=== PATIENT | male | born 1975 | race African-American/Black ===

== ENCOUNTER 2017-12-22 21:48 | Emergency (ER) | payer MEDICAID ==
[~2017-12-22] VITALS: Ht 180.3 cm; Wt 87.1 kg
[2017-12-22 21:59] VITALS: BP 125/90
[2017-12-22 22:20] LABS: Basophils # (auto) 0.1 uL; Basophils % (auto) 1.2 % (0.0-2.0); Eosinophils # (auto) 0.1 uL; Hematocrit 46.2 % (41.0-53.0); Hemoglobin 15.3 g/dL (13.5-17.5); Lymphocytes # (auto) 3.2 uL; Lymphocytes % (auto) 45.4 % (10.0-50.0); Mean Corpuscular Hemoglobin 28.3 pg (28.0-32.0); Mean Corpuscular Hgb Conc. 33.2 g/dL (32.0-36.0); Mean Corpuscular Volume 85.4 fL (80.0-100.0); Monocytes # (auto) 0.4 uL; Monocytes % (auto) 6.2 % (0.0-12.0); Neutrophils # (auto) 3.2 uL; Neutrophils % (auto) 46.2 % (37.0-80.0); Nucleated Red Blood Cells % 0.2 %; Platelet Count (auto) 387 10^3/uL (140-450); Red Blood Cells 5.41 10^6/uL (4.5-5.90)
[2017-12-22 22:31] LABS: Albumin 3.9 g/dL (3.4-5.0); BUN/Creatinine Ratio 21.2; Bilirubin, Total 0.5 mg/dL (0.2-1.0); Potassium 4.1 mmol/L (3.5-5.1)
== END 2017-12-23 03:34 | disposition left against medical advice (07) ==
LOC: ER 21:48
DX: R20.0 Anesthesia of skin (principal); Z53.21 Procedure and treatment not carried out due to patient leaving prior to being seen by health care provider
CPT/HCPCS: 36415; 70450; 72125; 80053; 85025

== ENCOUNTER 2017-12-25 17:29 | Emergency (ER) | payer MEDICAID ==
[~2017-12-25] VITALS: Ht 180.3 cm; Wt 88.5 kg
[2017-12-25 23:25] VITALS: BP 155/40
== END 2017-12-26 00:41 | disposition home or self-care (01) ==
LOC: ER 17:38
DX: G51.0 Bell's palsy (principal)
CPT/HCPCS: 70450

== ENCOUNTER 2018-02-16 11:37 | Emergency (ER) | payer MEDICAID ==
[~2018-02-16] VITALS: Ht 180.3 cm; Wt 83.9 kg
[2018-02-16 11:43] VITALS: BP 130/79
[2018-02-16] MEDS ORDERED: KETOROLAC TROMETH 60MG/2ML VIAL IM ONE (14:30)
[2018-02-16] MEDS ORDERED: DEXAMETHASONE SOD PHOS 10MG/1ML VIAL INJ IM ONE (14:30)
== END 2018-02-16 15:18 | disposition home or self-care (01) ==
LOC: ER 11:37
DX: S46.912A Strain of unspecified muscle, fascia and tendon at shoulder and upper arm level, left arm, initial encounter (principal); M54.6 Pain in thoracic spine; M79.18 Myalgia, other site; X50.1XXA Overexertion from prolonged static or awkward postures, initial encounter; Y93.89 Activity, other specified; Y92.89 Other specified places as the place of occurrence of the external cause; Y99.8 Other external cause status
CPT/HCPCS: 71046; 72040; 72070; 73030; 93005; 96372; 99284; J1100; J1885

== ENCOUNTER 2018-03-06 02:42 | Emergency (ER) | payer MEDICAID ==
[~2018-03-06] VITALS: Ht 180.3 cm; Wt 84.8 kg
[2018-03-06 02:54] VITALS: BP 154/84
[2018-03-06] MEDS ORDERED: KETOROLAC TROMETH 60MG/2ML VIAL IM ONE (03:45)
[2018-03-06] MEDS ORDERED: methylPREDNISolone SOD SUCC 125 MG/2 ML VL IM ONE (03:45)
== END 2018-03-06 05:04 | disposition home or self-care (01) ==
LOC: ER 02:44
DX: G58.8 Other specified mononeuropathies (principal); M62.838 Other muscle spasm
CPT/HCPCS: 72125; 96372; 99284; J1885; J2930

== ENCOUNTER 2018-11-03 07:59 | Emergency (ER) | payer MEDICAID ==
[~2018-11-03] VITALS: Ht 180.3 cm; Wt 90.7 kg
[2018-11-03 08:06] VITALS: BP 149/77
[2018-11-03] MEDS ORDERED: IPRATROPIUM BROM 0.5 MG/2.5ML INH SOL NEB ONE (09:00)
[2018-11-03] MEDS ORDERED: ALBUTEROL SULF 2.5 MG/0.5ML(0.5%) NEB SOLN NEB ONE (09:00)
== END 2018-11-03 09:38 | disposition home or self-care (01) ==
LOC: ER 07:59
DX: J98.01 Acute bronchospasm (principal); F41.9 Anxiety disorder, unspecified
CPT/HCPCS: 71046; 94640; 99283; J7611; J7644

== ENCOUNTER 2019-10-21 18:16 | Emergency (ER) | payer MEDICAID ==
[~2019-10-21] VITALS: Ht 180.3 cm; Wt 85.7 kg
[2019-10-21 18:17] VITALS: BP 150/87
[2019-10-21] MEDS ORDERED: ALBUTEROL SULF 2.5 MG/0.5ML(0.5%) NEB SOLN NEB ONE (19:30)
[2019-10-21] MEDS ORDERED: IPRATROPIUM BROM 0.5 MG/2.5ML INH SOL NEB ONE (19:30)
[2019-10-21] MEDS ORDERED: methylPREDNISolone SOD SUCC 125 MG/2 ML VL IM ONE (19:30)
== END 2019-10-21 20:31 | disposition home or self-care (01) ==
LOC: ER 18:16
DX: J98.01 Acute bronchospasm (principal)
CPT/HCPCS: 71046; 94640; 96372; 99283; J2930; J7644

== ENCOUNTER 2019-10-22 14:57 | Emergency (ER) | payer MEDICAID ==
[~2019-10-22] VITALS: Ht 180.3 cm; Wt 88.9 kg
[2019-10-22 16:36] VITALS: BP 130/87
[2019-10-22 16:45] LABS: Basophils # (auto) 0 10 ^3/uL (0-0.2); Basophils % (auto) 0.2 % (0.0-2.0); Eosinophils # (auto) 0 10 ^3/uL (0-0.8); Hematocrit 51.1 % (41.0-53.0); Hemoglobin 16.5 g/dL (13.5-17.5); Lymphocytes % (auto) 7.5 % (10.0-50.0); Mean Corpuscular Hgb Conc. 32.4 g/dL (32.0-36.0); Mean Corpuscular Volume 83.5 fL (80.0-100.0); Monocytes # (auto) 0.2 10 ^3/uL (0-1.3); Monocytes % (auto) 1.5 % (0.0-12.0); Neutrophils # (auto) 11.7 10 ^3/uL (1.6-8.6); Neutrophils % (auto) 90.8 % (37.0-80.0); Nucleated Red Blood Cells % 0.1 %; Platelet Count (auto) 374 10^3/uL (140-450); Red Blood Cells 6.12 10^6/uL (4.5-5.90); Red Cell Distribution Width 15.1 % (11.8-14.3); White Blood Cell 12.9 10^3/uL (4.4-10.8)
[2019-10-22 16:57] LABS: Anion Gap 6 (5-15); Calcium 9.6 mg/dL (8.5-10.1); Carbon Dioxide 25 mmol/L (21-32); Chloride 106 mmol/L (98-107); GFR African American 106 mL/min; GFR Non-African American 88 mL/min; Glucose 123 mg/dL (74-106); Potassium 3.9 mmol/L (3.5-5.1); Sodium 137 mmol/L (136-145)
[2019-10-22 17:01] LABS: BUN/Creatinine Ratio 19.4; Blood Urea Nitrogen 19 mg/dL (7-18)
[2019-10-22 17:10] LABS: Alcohol, Urine < 3.0 mg/dL (0-10); Amphetamine Screen, Urine NEGATIVE (NEGATIVE); Barbiturate Scree,Urine NEGATIVE (NEGATIVE); Benzodiazephine Screen, Urine NEGATIVE (NEGATIVE); Cannabinoid Screen, Urine POSITIVE (NEGATIVE); Cocaine Screen, Urine NEGATIVE (NEGATIVE); Opiate Scree,Urine NEGATIVE (NEGATIVE)
[2019-10-22 17:17] LABS: Phencyclidine Screen, Urine NEGATIVE (NEGATIVE)
[2019-10-22] MEDS ORDERED: cefTRIAXone SOD 1,000 MG VL IM ONE (17:30)
== END 2019-10-22 18:07 | disposition home or self-care (01) ==
LOC: ER 14:57
DX: J03.90 Acute tonsillitis, unspecified (principal); F41.1 Generalized anxiety disorder; K21.9 Gastro-esophageal reflux disease without esophagitis
CPT/HCPCS: 36415; 80048; 80307; 84484; 85025; 96372; 99283; J0696

== ENCOUNTER 2019-12-06 09:15 | Emergency (ER) | payer MEDICAID ==
[~2019-12-06] VITALS: Ht 180.3 cm; Wt 88.5 kg
[2019-12-06 09:31] VITALS: BP 128/89
[2019-12-06] MEDS ORDERED: cefTRIAXone SOD 1,000 MG VL IM ONE (10:00)
== END 2019-12-06 10:19 | disposition home or self-care (01) ==
LOC: ER 09:15
DX: J02.9 Acute pharyngitis, unspecified (principal); K21.9 Gastro-esophageal reflux disease without esophagitis; F17.210 Nicotine dependence, cigarettes, uncomplicated
CPT/HCPCS: 96372; 99283; J0696

== ENCOUNTER 2021-09-05 06:42 | Emergency (ER) | payer MEDICAID ==
[~2021-09-05] VITALS: Ht 180.3 cm; Wt 78.5 kg
[2021-09-05 06:42] VITALS: BP 124/83
[2021-09-05 08:30] LABS: Urine WBC None Seen /hpf (0 - 3)
[2021-09-05] MEDS ORDERED: SODIUM CHLORIDE 0.9% 1,000 ML IV ONE (08:45)
[2021-09-05] MEDS ORDERED: SODIUM CHLORIDE 0.9% 500 ML IVB ONE (08:45)
[2021-09-05] MEDS ORDERED: PROCHLORPERAZINE EDISYLATE 5 MG/ML 2ML VIAL IV ONE (08:45)
[2021-09-05 09:23] LABS: Amphetamine Screen, Urine NEGATIVE (NEGATIVE); Cannabinoid Screen, Urine POSITIVE (NEGATIVE)
[2021-09-05 09:31] LABS: Barbiturate Scree,Urine NEGATIVE (NEGATIVE); Benzodiazephine Screen, Urine NEGATIVE (NEGATIVE); Cocaine Screen, Urine NEGATIVE (NEGATIVE); Opiate Scree,Urine NEGATIVE (NEGATIVE); Phencyclidine Screen, Urine NEGATIVE (NEGATIVE)
[2021-09-05 09:33] LABS: Urine Bacteria NONE SEEN /hpf (None Seen); Urine Blood 1+ /uL (Negative); Urine Mucus FEW (None Seen); Urine Specific Gravity 1.036 (1.001-1.035)
[2021-09-05 11:00] LABS: Basophils # (auto) 0 10 ^3/uL (0-0.2); Basophils % (auto) 0.4 % (0.0-2.0); Eosinophils # (auto) 0 10 ^3/uL (0-0.8); Hemoglobin 17.5 g/dL (13.5-17.5); Neutrophils # (auto) 4.6 10 ^3/uL (1.6-8.6)
[2021-09-05 11:01] LABS: Eosinophils % (auto) 0.2 % (0.0-7.0); Hematocrit 52.2 % (41.0-53.0); Lymphocytes # (auto) 1.9 10 ^3/uL (0.4-5.4); Lymphocytes % (auto) 27.4 % (10.0-50.0); Mean Corpuscular Hgb Conc. 33.6 g/dL (32.0-36.0); Mean Corpuscular Volume 83.4 fL (80.0-100.0); Monocytes # (auto) 0.3 10 ^3/uL (0-1.3); Monocytes % (auto) 4.9 % (0.0-12.0); Neutrophils % (auto) 67.1 % (37.0-80.0); Nucleated Red Blood Cells % 0.1 %; Red Blood Cells 6.27 10^6/uL (4.5-5.90); Red Cell Distribution Width 14.4 % (11.8-14.3); White Blood Cell 6.8 10^3/uL (4.4-10.8)
[2021-09-05 11:17] LABS: Albumin 4.4 g/dL (3.4-5.0); Calcium 9.4 mg/dL (8.5-10.1); Magnesium 2.6 mg/dL (1.6-2.6); Potassium 4.2 mmol/L (3.5-5.1)
[2021-09-05 11:22] LABS: Bilirubin, Total 0.9 mg/dL (0.2-1.0)
== END 2021-09-05 10:07 | disposition left against medical advice (07) ==
LOC: ER 06:42
DX: R10.13 Epigastric pain (principal); F12.10 Cannabis abuse, uncomplicated; R11.2 Nausea with vomiting, unspecified; K21.9 Gastro-esophageal reflux disease without esophagitis; F17.210 Nicotine dependence, cigarettes, uncomplicated; Z90.49 Acquired absence of other specified parts of digestive tract
CPT/HCPCS: 36415; 74176; 80053; 80307; 81001; 83690; 83735; 85025; 96374; 99284; J0780; J7040

== ENCOUNTER 2023-04-10 08:13 | Emergency (ER) | payer MEDICAID ==
[~2023-04-10] VITALS: Ht 180.3 cm; Wt 86.6 kg
[2023-04-10 12:25] VITALS: BP 141/85; PULSE 58; RESP 18; TEMP 97.6; O2SAT 96
[2023-04-10] MEDS ORDERED: MELO7.5T7 PO (12:32)
[2023-04-10] MEDS ORDERED: LIDO5CRE14 EX (12:32)
== END 2023-04-10 12:37 | disposition home or self-care (01) ==
LOC: ER 08:13
DX: R07.89 Other chest pain (principal); K21.9 Gastro-esophageal reflux disease without esophagitis; F17.210 Nicotine dependence, cigarettes, uncomplicated; F12.10 Cannabis abuse, uncomplicated
CPT/HCPCS: 71045

== ENCOUNTER 2023-08-08 21:13 | Emergency (ER) | payer MEDICAID ==
[~2023-08-08] VITALS: Ht 180.3 cm; Wt 83.4 kg
[2023-08-08 21:13] VITALS: BP 140/80; PULSE 82; RESP 20; O2SAT 97
[~2023-08-08 21:13] MED LIST: LIDO5CRE14 EX; MELO7.5T7 PO
[2023-08-08 21:58] LABS: Basophils # (auto) 0 10 ^3/uL (0-0.2); Eosinophils # (auto) 0.5 10 ^3/uL (0-0.8); Eosinophils % (auto) 10.3 % (0.0-7.0); Hemoglobin 17.1 g/dL (13.5-17.5); Lymphocytes # (auto) 2.1 10 ^3/uL (0.4-5.4); Mean Corpuscular Volume 83.6 fL (80.0-100.0); Monocytes # (auto) 0.3 10 ^3/uL (0-1.3)
[2023-08-08 22:00] LABS: Basophils % (auto) 0.8 % (0.0-2.0); Hematocrit 52.9 % (41.0-53.0); Lymphocytes % (auto) 42.9 % (10.0-50.0); Mean Corpuscular Hgb Conc. 32.3 g/dL (32.0-36.0); Monocytes % (auto) 5.3 % (0.0-12.0); Neutrophils % (auto) 40.7 % (37.0-80.0); Nucleated Red Blood Cells % 0.4 %; Red Blood Cells 6.32 10^6/uL (4.5-5.90); Red Cell Distribution Width 14.9 % (11.8-14.3); White Blood Cell 4.9 10^3/uL (4.4-10.8)
[2023-08-08 23:00] LABS: Urine Bacteria None Seen /hpf (None Seen)
[2023-08-08 23:10] LABS: Alanine Aminotransferase 17 U/L (7-40); Albumin 4.3 g/dL (3.2-4.8); Alkaline Phosphatase 80 U/L (46-116); Anion Gap 6 (5-15); Aspartate Aminotransferase 18 U/L (13-40); BUN/Creatinine Ratio 15.1 (10.0-20.0); Blood Urea Nitrogen 13 mg/dL (9-23); Calcium 9.5 mg/dL (8.7-10.4); Carbon Dioxide 25 mmol/L (20-30); Chloride 104 mmol/L (98-107); Glucose 91 mg/dL (74-106); Lipase 28 U/L (12-53); Potassium 4.1 mmol/L (3.5-5.1); Sodium 135 mmol/L (136-145)
[2023-08-08 23:11] LABS: Bilirubin, Total 1.2 mg/dL (0.2-1.0); Total Protein 6.9 g/dL (5.7-8.2)
[2023-08-08 23:43] LABS: Urine Blood 1+ /uL (Negative); Urine Clarity Clear (Clear); Urine Color Yellow (Yellow); Urine Mucus FEW (None Seen); Urine Protein, UAD Negative (Negative); Urine Specific Gravity 1.026 (1.001-1.035); Urine Urobilinogen Normal (Negative); Urine WBC 1 /hpf (0 - 3); Urine pH 5.5 (5.0-9.0)
[2023-08-09] MEDS ORDERED: ZOFR4T PO (01:15)
[2023-08-09] MEDS ORDERED: ONDANSETRON HCL 4 MG/2 ML VIAL IV ONE (01:15)
[2023-08-09] MEDS ORDERED: FAMO20TA10 PO (01:15)
[2023-08-09] MEDS ORDERED: MORPHINE SULFATE 4 MG/ML SYR/VIAL IV ONE (01:15)
[2023-08-09] MEDS ORDERED: SODIUM CHLORIDE 0.9% 1,000 ML IV ONE (01:15)
[2023-08-09] MEDS ORDERED: HYDR-4902 PO (01:15)
== END 2023-08-09 05:02 | disposition left against medical advice (07) ==
LOC: ER 21:13
DX: K29.70 Gastritis, unspecified, without bleeding (principal); N20.0 Calculus of kidney; K21.9 Gastro-esophageal reflux disease without esophagitis; F17.210 Nicotine dependence, cigarettes, uncomplicated; F12.10 Cannabis abuse, uncomplicated
CPT/HCPCS: 36415; 74176; 80053; 81001; 83690; 85025

== ENCOUNTER 2023-11-17 13:48 | Inpatient (IN) | payer MEDICAID ==
[~2023-11-17] VITALS: Ht 180.3 cm; Wt 80.8 kg
[~2023-11-17 13:48] MED LIST changes: +FAMO20TA10 PO; +HYDR-4902 PO; +ZOFR4T PO
[2023-11-17 14:56] LABS: Basophils # (auto) 0.1 10 ^3/uL (0-0.2); Basophils % (auto) 0.6 % (0.0-2.0); Eosinophils # (auto) 0.1 10 ^3/uL (0-0.8); Eosinophils % (auto) 0.8 % (0.0-7.0); Hematocrit 40.6 % (41.0-53.0); Hemoglobin 13.9 g/dL (13.5-17.5); Lymphocytes # (auto) 3.4 10 ^3/uL (0.4-5.4); Lymphocytes % (auto) 37.3 % (10.0-50.0); Mean Corpuscular Hemoglobin 28.7 pg (28.0-32.0); Mean Corpuscular Hgb Conc. 34.2 g/dL (32.0-36.0); Mean Corpuscular Volume 83.9 fL (80.0-100.0); Monocytes # (auto) 0.4 10 ^3/uL (0-1.3); Monocytes % (auto) 4.9 % (0.0-12.0); Neutrophils # (auto) 5.1 10 ^3/uL (1.6-8.6); Neutrophils % (auto) 56.4 % (37.0-80.0); Nucleated Red Blood Cells % 0.1 %; Red Blood Cells 4.84 10^6/uL (4.5-5.90); Red Cell Distribution Width 14.6 % (11.8-14.3); White Blood Cell 9.1 10^3/uL (4.4-10.8)
[2023-11-17 15:11] LABS: INR 1.07 (0.9-1.15); Partial Thromboplastin Time 24.9 SEC (24.5-34.5); Prothrombin Time 11.3 sec (9.3-11.8)
[2023-11-17 15:13] LABS: Alanine Aminotransferase 17 U/L (7-40); Albumin 4.2 g/dL (3.2-4.8); Alkaline Phosphatase 56 U/L (46-116); Anion Gap 5 (5-15); Aspartate Aminotransferase 17 U/L (13-40); Blood Urea Nitrogen 43 mg/dL (9-23); Calcium 9.3 mg/dL (8.7-10.4); Carbon Dioxide 28 mmol/L (20-30); Chloride 103 mmol/L (98-107); Glucose 98 mg/dL (74-106); Magnesium 2.1 mg/dL (1.6-2.6); Potassium 4.8 mmol/L (3.5-5.1); Sodium 136 mmol/L (136-145)
[2023-11-17 15:14] LABS: Bilirubin, Total 0.5 mg/dL (0.2-1.0)
[2023-11-17 15:30] VITALS: PULSE 102; RESP 16; O2SAT 96
[2023-11-17] MEDS: SODIUM CHLORIDE 0.9% 1,000 ML IV ONE (15:45)
[2023-11-17] MEDS: PANTOPRAZOLE 40 MG/10 ML VIAL INJ IV ONE (16:06)
[2023-11-17] MEDS: PANTOPRAZOLE 80 MG in SODIUM CHL 0.9% 100 ML IV ONE (16:06)
[2023-11-17] MEDS: PANTOPRAZOLE 40mg/50ML NS AE 50 ML IV ONE (16:28)
[2023-11-17] MEDS ORDERED: ONDANSETRON HCL 4 MG/2 ML VIAL IV PRN (17:15)
[2023-11-17 17:19] LABS: Urine Bacteria None Seen /hpf (None Seen)
[2023-11-17] MEDS: SODIUM CHLORIDE 0.9% 1,000 ML IV SCH (17:26)
[2023-11-17 17:39] LABS: Urine Blood Negative /uL (Negative); Urine Clarity Clear (Clear); Urine Color Light-Yellow (Yellow); Urine Mucus FEW (None Seen); Urine Protein, UAD Negative (Negative); Urine Urobilinogen Normal (Negative); Urine WBC 1 /hpf (0 - 3); Urine pH 5.5 (5.0-9.0)
[2023-11-17 19:31] LABS: Hematocrit 37.1 % (41.0-53.0); Hemoglobin 12.3 g/dL (13.5-17.5)
[2023-11-17] MEDS: PANTOPRAZOLE 40 MG/10 ML VIAL INJ IV SCH (22:00)
[2023-11-17 22:08] VITALS: BP 116/69; PULSE 54; PULSE 88; RESP 17; RESP 20; TEMP 98.2; O2SAT 100
[2023-11-17 22:52] VITALS: BP 116/69; PULSE 61; RESP 18; TEMP 97.9; O2SAT 100
[2023-11-18] VITALS (8 sets, daily range): BP systolic 101–120; BP diastolic 56–84; PULSE 59–78; RESP 14–22; TEMP 97.8–98.2; O2SAT 97–99
[2023-11-18 06:52] LABS: Basophils # (auto) 0 10 ^3/uL (0-0.2); Basophils % (auto) 0.7 % (0.0-2.0); Eosinophils # (auto) 0.1 10 ^3/uL (0-0.8); Eosinophils % (auto) 2.1 % (0.0-7.0); Hematocrit 30.8 % (41.0-53.0); Hemoglobin 10.5 g/dL (13.5-17.5); Lymphocytes # (auto) 2.3 10 ^3/uL (0.4-5.4); Lymphocytes % (auto) 46.1 % (10.0-50.0); Mean Corpuscular Hemoglobin 28.5 pg (28.0-32.0); Mean Corpuscular Hgb Conc. 34.1 g/dL (32.0-36.0); Mean Corpuscular Volume 83.5 fL (80.0-100.0); Monocytes # (auto) 0.3 10 ^3/uL (0-1.3); Monocytes % (auto) 6.6 % (0.0-12.0); Neutrophils # (auto) 2.2 10 ^3/uL (1.6-8.6); Neutrophils % (auto) 44.5 % (37.0-80.0); Nucleated Red Blood Cells % 0.4 %; Red Blood Cells 3.69 10^6/uL (4.5-5.90); Red Cell Distribution Width 14.3 % (11.8-14.3); White Blood Cell 4.9 10^3/uL (4.4-10.8)
[2023-11-18 07:01] LABS: Alanine Aminotransferase 12 U/L (7-40); Albumin 3.2 g/dL (3.2-4.8); Alkaline Phosphatase 43 U/L (46-116); Anion Gap 8 (5-15); Aspartate Aminotransferase 9 U/L (13-40); BUN/Creatinine Ratio 26.8 (10.0-20.0); Bilirubin, Total 0.7 mg/dL (0.2-1.0); Blood Urea Nitrogen 22 mg/dL (9-23); Calcium 8.2 mg/dL (8.7-10.4); Carbon Dioxide 24 mmol/L (20-30); Chloride 106 mmol/L (98-107); Glucose 95 mg/dL (74-106); Potassium 4.2 mmol/L (3.5-5.1); Sodium 138 mmol/L (136-145); Total Protein 4.7 g/dL (5.7-8.2)
[2023-11-18 16:38] LABS: Hematocrit 32.3 % (41.0-53.0); Hemoglobin 10.8 g/dL (13.5-17.5)
[2023-11-18] MEDS: SUCRALFATE 1 GM/10 ML ORAL SUSP PO SCH (18:11)
[2023-11-19 01:00] VITALS: BP 110/50; PULSE 65; RESP 22; TEMP 97.9; O2SAT 99
[2023-11-19 04:54] VITALS: BP 101/55; PULSE 64; RESP 22; TEMP 97.8; O2SAT 99
[2023-11-19 08:00] VITALS: BP 123/73; PULSE 57; RESP 16; TEMP 98; O2SAT 98
[2023-11-19 12:00] VITALS: BP 115/66; PULSE 51; RESP 16; TEMP 98; O2SAT 95
[2023-11-19 16:00] VITALS: BP 109/61; PULSE 53; RESP 16; TEMP 98.3; O2SAT 97
[2023-11-19 21:00] VITALS: BP 139/77; PULSE 56; RESP 18; TEMP 98.4; O2SAT 99
[2023-11-20 01:00] VITALS: BP 110/65; PULSE 59; RESP 16; TEMP 98.1; O2SAT 98
[2023-11-20 05:00] VITALS: BP 110/67; PULSE 59; RESP 16; O2SAT 98
[2023-11-20] MEDS ORDERED: PROPOFOL 10 MG/ML 20 ML IV ONE (08:13)
[2023-11-20] MEDS ORDERED: fentaNYL CITRATE 100 MCG/2 ML VL ONE (08:17)
[2023-11-20 08:44] VITALS: PULSE 63; RESP 15
[2023-11-20 08:48] LABS: Hepatitis B Surface Antigen Negative (Negative)
[2023-11-20 09:00] VITALS: BP 112/60; PULSE 50; RESP 18; TEMP 97.8; O2SAT 92
[2023-11-20 09:10] LABS: Hepatitis C Antibody Negative (Negative)
[2023-11-20 13:00] VITALS: BP 118/63; PULSE 62; RESP 18; TEMP 97.9; O2SAT 97
[2023-11-20] MEDS ORDERED: SUCR1TAB31 OR (15:19)
[2023-11-20] MEDS ORDERED: PANT40T PO (15:19)
== END 2023-11-20 17:00 | disposition home or self-care (01) | DRG 241 ==
LOC: ER 13:48 → OVERFLOW 17:14 → WEST WING 21:58
PROVIDERS: ADMIT Internal Medicine; ATTEND Internal Medicine
PROC: 0DB68ZX Excision of Stomach, Via Natural or Artificial Opening Endoscopic, Diagnostic (ICD-10-PCS; 2023-11-20)
PROC: 0DB98ZX Excision of Duodenum, Via Natural or Artificial Opening Endoscopic, Diagnostic (ICD-10-PCS; principal; 2023-11-20 08:27)
DX: K29.71 Gastritis, unspecified, with bleeding (principal); D62 Acute posthemorrhagic anemia; K21.9 Gastro-esophageal reflux disease without esophagitis; F17.210 Nicotine dependence, cigarettes, uncomplicated; K25.9 Gastric ulcer, unspecified as acute or chronic, without hemorrhage or perforation; K29.80 Duodenitis without bleeding; Z82.49 Family history of ischemic heart disease and other diseases of the circulatory system; Z79.899 Other long term (current) drug therapy
CPT/HCPCS: 36415; 71045; 74176; 80053; 81001; 83735; 84484; 85014; 85018; 85025; 85610; 85730; 86803; 86850; 86900; 86901; 86920; 87340; 93005; 96361; 96365; 96375; G0378; J2470; J2704